=== PATIENT | female | born 1940 | race Caucasian/White ===

== ENCOUNTER 2019-04-12 19:41 | Emergency (ER) | payer MEDICARE ==
[~2019-04-12] VITALS: Ht 167.6 cm; Wt 73.6 kg
[2019-04-12 19:45] VITALS: BP 141/69
[2019-04-12] MEDS ORDERED: CYCL-1 PO (20:32)
[2019-04-12] MEDS ORDERED: DIPH-423 PO (20:32)
== END 2019-04-12 20:44 | disposition home or self-care (01) ==
LOC: ER 19:43
DX: M54.2 Cervicalgia (principal); I48.91 Unspecified atrial fibrillation; M19.90 Unspecified osteoarthritis, unspecified site; Z88.1 Allergy status to other antibiotic agents; Z88.0 Allergy status to penicillin; Z91.040 Latex allergy status
CPT/HCPCS: 99283